=== PATIENT | male | born 2000 | race Caucasian/White ===

== ENCOUNTER 2025-04-14 21:37 | Emergency (ER) | payer SELFPAY ==
--- NOTE | ~2025-04-14 | XR_ITS ---
Examination: XR chest 1V portable Clinical History: STERNAL CHEST PAIN X 1 DAY. Comparison: None Technique: Portable AP Findings: Heart size normal. Lungs clear. No acute bony abnormality. IMPRESSION: 1. No acute cardiopulmonary findings given portable technique. Reviewed, dictated and finalized at location R. T
--- NOTE | 2025-04-14 21:39 | ECG_ITS ---
Test Date: 2025-04-14 21:44:21 Measurements Intervals [place] Rate: 60 P: 76 VT: 160 QRS: 76 QRSD: 94 T: 70 QT: 363 QTc: 365 Interpretive Statements SINUS RHYTHM EARLY REPOLARIZATION [ST ELEVATION WITH NORMALLY INFLECTED T-WAVE] No previous ECG available for comparison Electronically Signed On 04-16-2025 12:10:32 PROJECT MANAGEMENT SPECIALIST by Prasanna Abdi M.D.
[2025-04-14 21:40] VITALS: BP 128/80; PULSE 68; PULSE 71; RESP 18; TEMP 36.4; O2SAT 97
--- NOTE | 2025-04-14 21:41 | ED_ITS ---
HPI - Chest Pain General Chief Complaint: Chest Pain Stated Complaint: Chest Pain Time Seen by Provider: 04/14/25 21:41 Source: patient Mode of arrival: ambulatory Limitations: no limitations History of Present Illness HPI narrative: Patient is a 24-year-old male with central chest pain for the past 2 days. It is mostly with some exertion and then he gets short of breath. The pain is a pressure-like as well as a pinching like sensation. No nausea vomiting or diarrhea. No fever chills. MD complaint: chest pain, chest heaviness and chest discomfort Pertinent past history: other (None) Onset (ago): day(s) (2) Timing of current episode: episodic, daily and still present Prior episodes: No Onset: during rest and during exertion Pain location: substernal and parasternal Pain radiation: none Severity: mild Pain scale (0-10): 3 Quality: heaviness and sharp (Pinching like) Relieving factors: nothing Exacerbating factors: exertion Context: other (Patient having centralized mid chest pain for the past 2 days associated with some shortness of breath; he is trying to catch his breath and count his breathing) Associated symptoms: dyspnea and sense of impending doom Treatment prior to arrival: none Risk Factors Coronary artery disease risk factors: none Thoracic aortic dissection risk factors: none Related Data Home Medications ?Medication ?Instructions ?Recorded ?Confirmed ?Last Taken ?Type No Home Medications 04/14/25 04/14/25 U nknown History Allergies Allergy/AdvReac Type Severity Reaction Status Date / Time No Known Allergies Allergy Verified 04/14/25 21:40 Review of Systems 2 Review of Systems: All systems reviewed & are unremarkable except as noted in HPI and below Constitutional: Constitutional: Reports no additional constitutional complaints Eyes: Eyes: Reports no additional eye complaints ENT: Reports system reviewed and no additional complaints, except as documented Cardiovascular: Cardiovascular: Reports no additional cardiovascular complaints Respiratory: Respiratory: Reports no additional respiratory complaints Gastrointestinal: Gastrointestinal: Reports no additional gastrointestinal complaints Genitourinary: Genitourinary: Reports no additional male genitourinary complaints Musculoskeletal: Musculoskeletal: Reports no additional musculoskeletal complaints Integumentary/Breasts: Skin/Breast: Reports system reviewed and no additional complaints, except as docu Neurologic: Reports system reviewed and no additional complaints, except as documented Psychiatric: Psychiatric: Reports no additional psychiatric complaints Endocrine: Endocrine: Reports no additional endocrine complaints Hematologic/Lymphatic: Hematologic/Lymphatic: Reports no additional hematologic/lymphatic complaints Allergic/Immunologic: Allergic/Immunologic: Reports no additional allergic/immunologic complaints Exam 2 Const: General: healthy appearing Nutritional Appearance: well nourished Orientation/consciousness: patient oriented x3 Limitations: no limitations HENMT: Head: normal to inspection Ears: external ears normal F eusebio/Nose/Sinus: Normal external nose present Eyes: Conjunctivae: conjunctivae normal Pupils: Equal, round and reactive pupils present EOM: EOMs intact bilaterally Neck: Neck: normal visual inspection Chest: Chest palpation & inspection: normal inspection of the chest Resp: Effort & Inspection: normal respiratory effort and not labored A uscultation: clear to auscultation bilaterally and no crackles Cardio: Rate: regular rate Rhythm: regular rhythm Heart sounds: no murmurs GI: Inspection: distended GI Palp: Yes Soft to palpation and No Tenderness to palpation present (GI) Auscultation: normal bowel sounds : General: Yes bladder normal to palpation Back/Spine/Pelvis: Back: no CVA tenderness Skin: General skin exam: normal color Rashes: no rashes Wounds: no wounds Neuro: General: patient oriented x3, moves all extremities and no meningeal signs Cranial nerves: Yes Nystagmus not present Speech: normal speech G ait exam (Neuro): Normal gait present Extrem: General: normal to inspection, no clubbing, cyanosis or edema and no pedal edema Psych: Mental Status: mental status grossly normal Affect: normal affect Attitude: cooperative Course Vital Signs Vital signs: Vital Signs Temperature 36.4 C L 04/14/25 21:40 Pulse Rate 71 04/14/25 21:40 Respiratory Rate 18 04/14/25 21:40 Blood Pressure 128/80 04/14/25 21:40 Pulse Oximetry 97 04/14/25 21:40 Oxygen Delivery Room Air 04/14/25 21:40 Temperature 36.4 C L 04/14/25 21:40 Pulse Rate 64 04/14/25 22:24 Respiratory Rate 18 04/14/25 22:24 Blood Pressure 115/75 04/14/25 22:24 Pulse Oximetry 97 04/14/25 22:24 Oxygen Delivery Room Air 04/14/25 22:24 MDM - Chest Pain MDM Narrative Medical decision making narrative: Patient is a 24-year-old male with some chest pain for the past 2 days and associated shortness of breath. Will do a cardiopulmonary workup at this time. Lab Data Attestation: I reviewed the patient's lab results. 04/14/25 21:43 04/14/25 21:43 Labs: Lab Results 04/14/25 04/14/25 04/14/25 Range/Units 21:42 21:43 21:44 WBC 4.6 L (4.8-10.8) K/mm3 RBC 4.15 L (4.70-6.10) M/mm3 Hgb 13.0 L (14.0-18.0) g/dL Hct 37.0 L (40.0-54.0) % MCV 89.2 (78.0-102.0) fL MCH 31.3 H (27.0-31.0) pg MCHC 35.1 (32-36) g/dL RDW 11.2 L (11.6-14.4) % Plt Count 193 (150-420) K/mm3 MPV 9.1 (8.7-11.0) fl Immature Gran % (Auto) 0.2 H (0.0-0.0) % Neut % (Auto) 48.4 L (50.0-70.0) % Lymph % (Auto) 36.4 (18.0-42.0) % [place] % (Auto) 8.7 (2.0-11.0) % Eos % (Auto) 5.4 (1.0-6.0) % Baso % (Auto) 0.9 (0.0-1.0) % Lymph # (Auto) 1.68 (1.10-4.50) K/mm3 [place] # (Auto) 0.40 (0.10-0.90) K/mm3 Eos # (Auto) 0.25 (0.02-0.50) K/mm3 Baso # (Auto) 0.04 (0.00-0.10) K/mm3 Abs Immat Gran (auto) 0.01 H (0.00-0.00) K/mm3 Absolute Neuts (auto) 2.23 (1.70-7.20) K/mm3 Absolute Nucleated RBC 0.00 (0.00-0.00) K/mm3 Nucleated RBC % 0.0 (0-0.0) % PT 10.6 (9.50-12.1) Seconds INR 1.0 APTT 25.3 (23.9-30.70) Sec D-Dimer 0.19 (0.19-0.50) mg/L Sodium 143 (137-145) mmol/L Potassium 3.6 (3.4-5.0) mmol/L Chloride 101 (98-107) mmol/L Carbon Dioxide 34 H (22-30) mmol/L Anion Gap 8 (4-12) mmol/L BUN 4 L (9-20) mg/dL Creatinine 0.79 (0.7-1.3) mg/dL Estim Creat Clear Calc 139 ml/min Estimated GFR > 60 (59 - ) Glucose 102 (65-110) mg/dL Calculated Osmolality 292 (285-295) mOsm/kg Calcium 8.5 (8.4-10.2) mg/dL Total Bilirubin 1.1 (0.2-1.3) mg/dL AST 26 (17-59) U/L ALT 21 (6-50) U/L Alkaline Phosphatase 68 (38-126) U/L Troponin I < 0.012 (0.000-0.034) ng/mL Total Protein 6.5 (6.3-8.2) g/dL Albumin 4.2 (3.5-5.1) g/dL Lipase 91 (23-300) U/L Influenza A (RT-PCR) Negative (Negative) Influenza B (RT-PCR) Negative (Negative) RSV (RT-PCR) Negative (Negative) SARS-CoV-2 RNA (RT-PCR) Negative (Negative) Imaging Data Attestation: I personally reviewed and interpreted this imaging study as follows: My impression: Chest x-ray pending final reading shows no acute process ECG Data EKG #1: Attestation: I personally reviewed and interpreted this ECG as follows: ECG completion date: 04/14/25 ECG completion time: 21:58 Interpretation: Early repolarization EKG Interpretation: normal rate, sinus rhythm, no ectopy, no ST changes, normal QRS, normal QT, NL axis and no acute changes Discharge Plan Discharge Clinical Impression: Atypical chest pain Patient Disposition: Home Condition: Stable Instructions: Chest Pain (ED) Additional Instructions: Please follow-up with the primary doctor in the next week. Patient Language: Divehi Prescriptions: No Action No Home Medications Follow-up/Referrals: Donta,Moses Cannon MD [Primary Care Provider] Time of Disposition: 22:58
--- NOTE | 2025-04-14 21:44 | PC.NURSE ---
YONIID SWAB TAKEN DOWN TO LAB. NANCY WITH LAB WAS CALLED AND NOTIFIED
--- OUTSIDE RECORDS SUMMARY | 2025-04-14 22:02 | XMS_ITS | Clinical Summary ---
Author Organization [facility] Address [facility] [place] [address] Care Team Providers Care Development Consultant Name Role Phone None, Provider MD Primary Care Provider Unavaila ble Allergies No known active allergies Medications No known medications Active Problems No known active problems Social History Tobacco Use Types Packs/Day Years Used Date Smoking Tobacco: Never Smokeless Tobacco: Never Alcohol Use Standard Drinks/Week Comments Yes 0 (1 standard drink = 0.6 oz pur e alcohol) rarely Sex and Gender Information Value Date Recorded Sex Assigned at Not on file 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 Gender Identity Not on file Sexual Orientation Not on file Last Filed Vital Signs Vital Sign Reading Time Taken Comments Blood Pressure 106/61 09/03/2023 10:00 PM CDT Pulse 71 09/03/2023 7:15 PM CDT Temperature 36.6 C (97.8 F) 09/03/2023 7:15 PM CDT Respiratory Rate 18 09/03/2023 7:15 PM CDT Oxygen Saturation 98% 09/03/2023 10:00 PM CDT Inhaled Oxygen Concentration - - Weight 89.1 kg (196 lb 6.4 oz) 09/03/2023 7:15 P M CDT Height 185.4 cm (6' 1) 09/03/2023 7:15 PM CDT Body Mass Index 25.91 09/03/2023 7:15 PM CDT Plan of Treatment Health Maintenance Due Date Last Done Comments Annual Physical 2001 Hepatitis C 2016 DTaP, Tdap and Td Vaccines (7 - Td or Tdap) 03/21/2023 03/21/2013, 12/12/2003, 01/07/2000, Additional history exists COVID-19 Vaccine ( season) 2025 Influenza Adult (#1) 2025 03/17/2017 Hepatitis B Vaccines Completed 01/07/2000, 03/25/1999, 01/08/1999 HPV Vaccines Completed 03/17/2017, 03/21/2013 Hepatitis A Vaccines Completed 03/17/2017, 03/21/20 13 Meningococcal Vaccine Completed 03/17/2017, 013 Meningococcal B Vaccine Aged Out No l onger eligible based on patient's age to complete this topic Pneumococcal Vaccine: Pediatrics (0 to 5 Years) and At-Risk Patients (6 to 49 Years) Aged Out No longer eligible based on patient's age to complete this topic RSV Immunizations Under 20 Months Aged Out No longer eligible based on patient's age to complete this topic Insurance [employer] Care Teams Development Consultant Relationship Specialty Start Date End Date None, Provider, MD PCP - General UNKNOWN PHYSICIAN SPECIALTY 09/03/23
--- OUTSIDE RECORDS SUMMARY | 2025-04-14 22:02 | XMS_ITS | Encounter Summary ---
Author Organization [facility] Address [facility] [place] [address] Care Team Providers Care Stoneworking Belt Sander Name Role Phone Moses Longo MD Primary Care Provider [phone] None, Provider Primary Care Provider Unavaila ble Encounter Details Date Type Department Care Team (Late st Contact Info) Description 11/05/2018 Abstract [facility] CONVERSION [address] [place] [address] , Generic Conversion, Social History Tobacco Use Types Packs/Day Years Used Date Smoking Tobacco: Never Assessed Sex and Gender Information Value Date Recorded Sex Assigned at Not on file 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
--- OUTSIDE RECORDS SUMMARY | 2025-04-14 22:02 | XMS_ITS | Clinical Summary ---
Author Organization [facility] [address] [place] [address] Care Team Providers Care Water Meter Mechanic Name Role Phone No, Physician Primary Care Provider [phone] Allergies No known active allergies Medications No known medications Active Problems Problem Noted Date Diagnosed Date Shortness of breath 07/27/2023 Family History Medical History Relation Name Comments Cancer Maternal Grandmother Thyroid disease Mother Relation Name Status Comments Maternal Grandmother Mother Social History Tobacco Use Types Packs/Day Years Used Date Smoking Tobacco: Never Passive Smoke Exposure: Past Smokeless Tobacco: Never Tobacco Cessation:Counseling Given: Not Answered AUDIT-C Answer Date Recorded Q1: How often do you have a drink containing alc ohol? 2-4 times a month 06/22/2023 Q2: How many drinks containi ng alcohol do you have on a typical day when you are drinking? 5 or 6 06/22/2023 Frequency of Binge Drinking Not on file 06/01 Personal Safety Answer Date Recorded Have you ever been in or are you currently in a harmful physical or emotional relationship or is someone making you feel afraid or unsafe? 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 Gender Identity Not on file Sexual Orientation Not on file Last Filed Vital Signs Vital Sign Reading Time Taken Comments Blood Pressure 128/74 09/06/2023 10:37 AM CDT Pulse 52 09/06/2023 10:37 AM CDT Temperature 36.6 C (97.9 F) 09/06/2023 10:37 AM CDT Respiratory Rate 16 09/06/2023 10:37 AM CDT Oxygen Saturation 100% 09/06/2023 10:37 AM CDT Inhaled Oxygen Concentration - - Weight 89.6 kg (197 lb 8.5 oz) 09/06/2023 10:37 AM CDT Height 185.4 cm (6' 1) 06/22/2023 2:10 PM CLIENT ADMINISTRATOR Body Mass Index 26.06 06/22/2023 2:10 PM CLIENT ADMINISTRATOR Plan of Treatment Health Maintenance Due Date Last Done Comments Depression Screening 1998 Hepatitis C Screening 1998 Regular Well Visit/Exam 18-64 2016 DTaP/Tdap/Td Vaccine (7 - Td or Tdap) 03/21/2023 03/21/2013, 12/12/2003, 01/07/2000, Additional history exists Influenza Vaccine (#1) 2025 03/17/2017 Hepatitis B Screening Completed 01/07/2000 , 03/25/1999, 01/08/1999 Varicella Vaccines Completed 03/21/2013, 05/11/2002 HPV Vaccines Completed 03/17/2017, 03/21/2013 Pneumococcal vaccine <65 Aged Out No longer eligible based on patient's age to complete this topic Insurance [facility] Care Teams Water Meter Mechanic Relationship Specialty Start Date End Date No, Physician PCP - General 09/06/23
[2025-04-14 22:16] LABS: Hematocrit 37.0 % (40.0-54.0); Hemoglobin 13.0 g/dL (14.0-18.0); Immature Granulocyte Percent A 0.2 % (0.0-0.0); Lymphocytes Absolute Auto 1.68 K/mm3 (1.10-4.50); Mean Corpuscular HGB Conc 35.1 g/dL (32-36); Mean Corpuscular Hemoglobin 31.3 pg (27.0-31.0); Mean Corpuscular Volume 89.2 fL (78.0-102.0); Nucleated Red Blood Cells Absolute Auto 0.00 K/mm3 (0.00-0.00); Nucleated Red Blood Cells Perc 0.0 % (0-0.0); Platelet Count Result 193 K/mm3 (150-420); Red Blood Count 4.15 M/mm3 (4.70-6.10); White Blood Count 4.6 K/mm3 (4.8-10.8)
[2025-04-14 22:24] VITALS: BP 115/75; PULSE 64; RESP 18; O2SAT 97
[2025-04-14 22:31] LABS: Alanine Aminotransferase 21 U/L (6-50); Albumin Level 4.2 g/dL (3.5-5.1); Alkaline Phosphatase 68 U/L (38-126); Anion Gap 8 mmol/L (4-12); Aspartate Amino Transferase 26 U/L (17-59); Blood Urea Nitrogen 4 mg/dL (9-20); Calcium 8.5 mg/dL (8.4-10.2); Carbon Dioxide 34 mmol/L (22-30); Chloride 101 mmol/L (98-107); Estimated CRCL calculation 139 ml/min; Estimated Glomerular Filt Rate > 60; Glucose 102 mg/dL (65-110); Lipase 91 U/L (23-300); Osmolality Calculated 292 mOsm/kg (285-295); Potassium 3.6 mmol/L (3.4-5.0); Sodium 143 mmol/L (137-145); Total Protein 6.5 g/dL (6.3-8.2)
[2025-04-14 22:32] LABS: INR 1.0; Partial Thromboplastin Time 25.3 Sec (23.9-30.70); Prothrombin Time 10.6 Seconds (9.50-12.1)
[2025-04-14 22:42] LABS: Troponin I < 0.012 ng/mL (0.000-0.034)
[2025-04-14 22:55] LABS: Influenza A QL RT-PCR Negative (Negative); Influenza B QL RT-PCR Negative (Negative); RSV RNA, RT-PCR Negative (Negative); SARS-CoV-2 RNA PCR Negative (Negative)
[2025-04-14 23:03] VITALS: BP 111/73; PULSE 65; RESP 18; TEMP 36.5; O2SAT 98
[2025-04-17 13:48] LABS: Bilirubin,Total < 0.1 mg/dL (0.2-1.3)
== END 2025-04-14 23:05 | disposition home or self-care (01) ==
PROVIDERS: Emergency Provider Emergency Medicine; PCP Family Medicine
DX: R07.89 Other chest pain (principal); Z20.822 Contact with and (suspected) exposure to COVID-19
CPT/HCPCS: 36415; 71045; 80053; 83690; 84484; 85025; 85380; 85610; 85730; 87637; 93005; 99284